=== PATIENT | male | born 1980 | race Asian ===

== ENCOUNTER 2018-04-11 20:58 | Emergency (ER) | payer BC ==
[~2018-04-11] VITALS: Ht 167.6 cm; Wt 84.4 kg
[2018-04-11 21:44] LABS: PLATELET COUNT 220 K/uL (142-355)
[2018-04-11 21:57] LABS: POTASSIUM 3.8 mmol/L (3.6-5.2); SODIUM 141 mmol/L (136-145)
[2018-04-11 22:32] VITALS: BP 116/72; TEMP 98.7
== END 2018-04-11 22:48 | disposition home or self-care (01) ==
LOC: ED 20:58
DX: K29.70 Gastritis, unspecified, without bleeding (principal); R00.0 Tachycardia, unspecified
CPT/HCPCS: 36415; 74022; 80053; 82150; 83690; 84484; 85027; 93005; 96372; 99283; J1885

== ENCOUNTER 2018-10-17 14:36 | Emergency (ER) | payer BC ==
[~2018-10-17] VITALS: Ht 167.6 cm; Wt 88.5 kg
[2018-10-17 15:31] LABS: PLATELET COUNT 206 K/uL (142-355)
[2018-10-17 15:42] LABS: POTASSIUM 4.5 mmol/L (3.6-5.2)
[2018-10-17 17:50] VITALS: BP 117/58; TEMP 98.3
== END 2018-10-17 17:50 | disposition home or self-care (01) ==
LOC: ED 14:36
PROVIDERS: Emergency Medicine
DX: R55 Syncope and collapse (principal); W22.8XXA Striking against or struck by other objects, initial encounter
CPT/HCPCS: 80053; 80307; 81000; 85027; 93005; 99283